=== PATIENT | female | born 1930 | race Caucasian/White ===

== ENCOUNTER 2017-07-18 13:42 | Outpatient (CLI) | payer MEDICARE | END 2017-07-18 13:44 | LOC: LAB 13:42 | PROVIDERS: ATTEND Internal Medicine Cardiovascular Disease | DX: Z79.01 Long term (current) use of anticoagulants (principal) | CPT/HCPCS: 36415; 85610 ==

== ENCOUNTER 2018-12-12 17:58 | Emergency (ER) | payer MEDICARE ==
[2018-12-12] MEDS ORDERED: LABETALOL HCL 20 MG/4 ML SYRINGE IV ONE ×2 (18:13→19:10)
[2018-12-12 19:07] LABS: eGFR (Non-African) > 60
--- NOTE | 2018-12-12 19:07 | ED Physician Documentation ---
General Adult - HISTORIAN Historian: other (caregiver) - HPI Stated Complaint: Hematoma Chief Complaint: General Adult Additional Information: Presents to ER with her caregiver. Son called caregiver because he noticed swelling over right scapula. Says it was not there before. She experienced a fall with broken ribs 4 weeks ago. BP in ER is 237/111; caregiver says it has been this way for the 4 weeks she has been with patient. The lowest reading obtained in 4 weeks has been 150/90. Pt takes 30 mg lisinopril daily for BP. Caregiver reports right ankle swelling. Pt is non conversant and cannot contribute in any way to CC, HPI, ROS. - ROS CONST: no problems - PAST HX Past History: A-Fib, hypertension. denies: CHF Allergies/Adverse Reactions: Allergies Allergy/AdvReac Type Severity Reaction Status Date / Time No Known Allergies Allergy Verified 12/12/18 18:16 Home Medications: Ambulatory Orders Medication Instructions Recorded Lisinopril [Zestril] 1 tab PO DAILY 12/12/18 - SOCIAL HX Smoking History: non-smoker - FAMILY HX Family History: No (no signif) - VITAL SIGNS Vital Signs: Vital Signs Temp Pulse Resp BP Pulse Ox 69 17 237/114 97 12/12/18 18:00 12/12/18 18:00 12/12/18 18:00 12/12/18 18:00 - REVIEWED ASSESSMENTS Nursing Assessment Reviewed: Yes Vitals Reviewed: Yes Progress - Progress Progress: Report Submission Date: Dec 12, 2018 7:23:38 PM WAREHOUSE PERSON Patient Study Name: GERTRUDIS WINSTON Date: Dec 12, 2018 7:00:12 PM WAREHOUSE PERSON Modality Type: DX Gender: F Description: CHEST : 34 Institution: [facility] Physician: KAT RICHTER - ER Chest, AP portable HISTORY Shortness of breath, pneumonia. FINDINGS There is atelectasis in the lung bases. There is no pleural effusion or pneumothorax. The heart is enlarged. Pulmonary vascularity is normal. IMPRESSION Cardiomegaly. Mild bilateral lower lobe atelectasis. Electronically signed on Dec 12, 2018 7:23:38 PM WAREHOUSE PERSON by: Denton Sarmiento Bp 155/77 after 2 doses of IV labetalol, 5 mg, 10 mg. BP still labile. ED Results Lab/Radiology - Orders Orders: ED Orders Category Date Time Status Place IV Lock 1T Care 12/12/18 18:18 Active CHEST 1VIEW [RAD] Stat Exams 12/12/18 Ordered BNP [NT-proBNP] Stat Lab 12/12/18 Ordered CBC/PLATELET/DIFF Routine Lab 12/12/18 Ordered CMP Routine Lab 12/12/18 Ordered URINALYSIS Routine Lab 12/12/18 Ordered Labetalol HCl [Trandate Inj] Med 12/12/18 18:13 Discontinued 5 mg IV NOW ONE General Adult Physical Exam - PHYSICAL EXAM GENERAL APPEARANCE: no distress EENT: eye inspection normal, ENT inspection normal NECK: normal inspection, supple RESPIRATORY: no resp distress, breath sounds normal, other (poor effort). No: rales CVS: reg rate & rhythm, murmur (3/6 [place]) ABDOMEN: soft, normal bowel sounds, no distension, non-tender BACK: normal inspection, other (fluctuant mass over right scapula, non tender, 10x20 cm at largest dimensions, not tender. Yellow green aging ecchymosis at right upper area of swelling) SKIN: warm/dry, normal color (except as above) EXTREMITIES: no evidence of injury, edema (non pitting at right ankle, mild) NEURO: CN's nml as tested, motor nml, sensation nml, other ([place]) Discharge Clincal Impression: Ecchymosis Hypertension Qualifiers: Hypertension type: unspecified Qualified Code(s): I10 - Essential (primary) hypertension Referrals: Michael Bar MD [Primary Care Provider] - 2 Days Additional Instructions: Please see your provider as soon as possible to consider adjustment of your blood pressure medications. Condition: Fair Disposition: 01 HOME, SELF-CARE Decision to Admit: NO Decision Time: 20:00
[2018-12-12 19:10] LABS: BASOPHILS % 0.7 (0.0-1.5); MEAN CORPUSCULAR HEMOGLOBIN 29.2 pg (28.0-34.0); MONOCYTES % 6.2 % (0.0-11.0)
[2018-12-12 20:02] LABS: APPEARANCE,URINE CLEAR (CLEAR); COLOR,URINE YELLOW (YELLOW); OCCULT BLOOD,URINE NEGATIVE (NEGATIVE); UROBILINOGEN URINE 0.2 Eu (0.2-1.0)
[2018-12-12 20:17] VITALS: BP 210/84
--- NOTE | 2018-12-13 03:02 | Diagnostic Imaging Report ---
KAT RICHTER [facility] [id number] [facility] [address] [id number] Report Submission Date: Dec 12, 2018 7:23:38 PM RETAIL PROPERTY MANAGER Patient Study Name: GERTRUDIS WINSTON Date: Dec 12, 2018 7:00:12 PM RETAIL PROPERTY MANAGER Modality Type: DX Gender: F Description: CHEST : 34 Institution: [facility] Physician: KAT RICHTER Chest, AP portable HISTORY Shortness of breath, pneumonia. FINDINGS There is atelectasis in the lung bases. There is no pleural effusion or pneumothorax. The heart is enlarged. Pulmonary vascularity is normal. IMPRESSION Cardiomegaly. Mild bilateral lower lobe atelectasis. Electronically signed on Dec 12, 2018 7:23:38 PM RETAIL PROPERTY MANAGER by: Denton BRADFORD
== END 2018-12-12 20:15 | disposition home or self-care (01) ==
LOC: ED 17:58
DX: R58 Hemorrhage, not elsewhere classified (principal); I10 Essential (primary) hypertension
CPT/HCPCS: 36415; 71045; 80053; 81002; 83880; 85025; 96374; 96376; 99282; 99284; S1016